=== PATIENT | female | born 1945 | race Caucasian/White ===

== ENCOUNTER 2018-12-01 10:37 | Inpatient (IN) ==
[2018-12-01] MEDS ORDERED: 0.9 % Sodium Chloride 1,000 ML IVC ONE (10:49)
[2018-12-01 11:26] LABS: Basophils % 0.4 %; Eosinophils # 0.2 K/mcL (0.0-0.6); Hematocrit 43.9 % (35.3-44.9); Hemoglobin 14.3 g/dL (11.5-15.4); Immature Granulocytes % 0.3 % (0-4); Lymphocytes # 2.4 K/mcL (0.6-4.6); Lymphocytes % 26.7 %; Mean Corpuscular HGB Conc 32.6 g/dL (31.6-35.5); Mean Corpuscular Hemoglobin 30.1 pg (28.0-33.3); Mean Corpuscular Volume 92.4 fL (83.0-100.0); Mean Platelet Volume 10.6 fL (9.4-12.4); Monocytes # 0.9 K/mcL (0.0-1.3); Monocytes % 9.8 %; Neutrophils # 5.5 K/mcL (1.6-8.9); Platelet Count 228 K/mcL (140-400); Red Blood Count 4.75 M/mcL (3.82-4.97); Red Cell Distribution Width 13.2 % (11.5-14.5); Segmented Neutrophils % 60.8 %
[2018-12-01 11:35] LABS: INR 2.8; Prothrombin Time 31.8 Seconds (9.4-12.1)
[2018-12-01 11:47] LABS: BUN/Creatinine Ratio 23 (6-26); Blood Urea Nitrogen 26 mg/dL (8-23); Calcium 9.5 mg/dL (8.6-10.3); Carbon Dioxide 24 mEq/L (23-29); Chloride 110 mEq/L (98-107); Glucose 107 mg/dL (70-105); Osmolality,Calculated 289 (280-300); Potassium 4.3 mEq/L (3.5-5.1); Sodium 137 mEq/L (136-145); Troponin I < 0.03 ng/mL (< 0.04); eGFR For African Americans 57 (> 60); eGFR For Non-African Americans 47 (> 60)
[2018-12-01 12:00] LABS: Thyroid Stimulating Hormone 2.133 mcIU/mL (0.340-5.600)
[2018-12-01] MEDS ORDERED: Aspirin 81 MG TAB.CHEW PO STA (12:02)
[2018-12-01] MEDS ORDERED: Naloxone 0.4 MG/ML INJ IVP PRN (15:10)
[2018-12-01] MEDS ORDERED: NON-FORMULARY MEDICATION 1 EACH EACH (Zolmitriptan [Zomig] 5 MG) PO PRN (15:17)
[2018-12-01] MEDS ORDERED: *HR* Heparin 5,000 UNIT/ML VIAL IVP PRN ×2 (15:27)
[2018-12-01] MEDS ORDERED: *HR* Heparin 5,000 UNIT/ML VIAL IVP ONE (15:27)
[2018-12-01] MEDS ORDERED: Heparin 25,000 UNIT/250 ML D5W 25,000 UNIT/250 ML IV.SOLN IVC SCH (15:30)
[2018-12-01 16:32] LABS: Hematocrit 43.9 % (35.3-44.9); Hemoglobin 14.4 g/dL (11.5-15.4); Mean Corpuscular HGB Conc 32.8 g/dL (31.6-35.5); Mean Corpuscular Hemoglobin 30.2 pg (28.0-33.3); Mean Platelet Volume 10.6 fL (9.4-12.4); Platelet Count 233 K/mcL (140-400); Red Blood Count 4.77 M/mcL (3.82-4.97); Red Cell Distribution Width 13.1 % (11.5-14.5); White Blood Count 9.5 K/mcL (4.3-11.1)
[2018-12-01] MEDS ORDERED: Warfarin perPT PO PRN (18:00)
[2018-12-01] MEDS: Loratadine 10 MG TABLET PO SCH (22:36)
[2018-12-02 04:34] LABS: Basophils # 0.1 K/mcL (0.0-0.2); Basophils % 0.5 %; Eosinophils # 0.3 K/mcL (0.0-0.6); Eosinophils % 2.9 %; Hematocrit 43.2 % (35.3-44.9); Hemoglobin 14.1 g/dL (11.5-15.4); Immature Granulocytes % 0.2 % (0-4); Lymphocytes # 3.2 K/mcL (0.6-4.6); Lymphocytes % 32.4 %; Mean Corpuscular HGB Conc 32.6 g/dL (31.6-35.5); Mean Corpuscular Hemoglobin 29.9 pg (28.0-33.3); Mean Corpuscular Volume 91.5 fL (83.0-100.0); Mean Platelet Volume 10.5 fL (9.4-12.4); Monocytes # 0.9 K/mcL (0.0-1.3); Monocytes % 9.2 %; Neutrophils # 5.4 K/mcL (1.6-8.9); Platelet Count 213 K/mcL (140-400); Red Blood Count 4.72 M/mcL (3.82-4.97); Red Cell Distribution Width 13.1 % (11.5-14.5); Segmented Neutrophils % 54.8 %; White Blood Count 9.8 K/mcL (4.3-11.1)
[2018-12-02 04:38] LABS: INR 2.8; Prothrombin Time 31.3 Seconds (9.4-12.1)
[2018-12-02 04:51] LABS: Alanine Aminotransferase 44 Units/L (7-52); Albumin 3.9 g/dL (3.5-5.7); Albumin/Globulin Ratio 1.5 (1.1-2.2); Alkaline Phosphatase 63 Units/L (34-104); Aspartate Amino Transferase 25 Units/L (13-39); BUN/Creatinine Ratio 21 (6-26); Bilirubin,Total 0.8 mg/dL (0.3-1.0); Blood Urea Nitrogen 21 mg/dL (8-23); Calcium 9.1 mg/dL (8.6-10.3); Carbon Dioxide 23 mEq/L (23-29); Chloride 109 mEq/L (98-107); Chol/HDL Ratio 3.4 (0-4.9); Cholesterol 131 mg/dL (< 200); Globulin 2.6 g/dL (2.4-3.5); Glucose 100 mg/dL (70-105); HDL Cholesterol 38 mg/dL (40-59); Osmolality,Calculated 291 (280-300); Potassium 4.3 mEq/L (3.5-5.1); Sodium 139 mEq/L (136-145); Total Protein 6.5 g/dL (6.4-8.9); eGFR For African Americans > 60 (> 60); eGFR For Non-African Americans 53 (> 60)
[2018-12-02 05:58] LABS: LDL Cholesterol,Calculated 71 mg/dL (0-99); Triglycerides 108 mg/dL (< 150)
[2018-12-02] MEDS ORDERED: SUMAtriptan succinate 25 MG TABLET PO PRN (08:15)
[2018-12-02] MEDS: Loratadine 10 MG TABLET PO SCH (11:56)
[2018-12-02] MEDS: Acetaminophen 325 MG TABLET PO PRN (11:57)
[2018-12-02] MEDS ORDERED: Furosemide 40 MG/4 ML VIAL IVP ONE (17:17)
[2018-12-03 04:40] LABS: Hemoglobin 15.2 g/dL (11.5-15.4); Mean Corpuscular Hemoglobin 30.8 pg (28.0-33.3); Mean Corpuscular Volume 93.1 fL (83.0-100.0); Mean Platelet Volume 11.1 fL (9.4-12.4); Platelet Count 228 K/mcL (140-400); Red Blood Count 4.94 M/mcL (3.82-4.97); Red Cell Distribution Width 13.2 % (11.5-14.5); White Blood Count 10.3 K/mcL (4.3-11.1)
[2018-12-03 04:41] LABS: Prothrombin Time 22.2 Seconds (9.4-12.1)
[2018-12-03 04:53] LABS: Calcium 9.5 mg/dL (8.6-10.3)
[2018-12-03] MEDS: Loratadine 10 MG TABLET PO SCH (10:16)
[2018-12-03] MEDS: Doxycycline 100 MG CAPSULE PO SCH (10:16)
[2018-12-04 03:06] LABS: INR 1.5; Prothrombin Time 17.4 Seconds (9.4-12.1)
[2018-12-04] MEDS ORDERED: Clindamycin 900 MG/50 ML 900 MG/50 ML IV.SOLN IVPB ONE (07:59)
[2018-12-04] MEDS: Loratadine 10 MG TABLET PO SCH (09:00)
[2018-12-04] MEDS: Doxycycline 100 MG CAPSULE PO SCH (09:00)
[2018-12-04] MEDS ORDERED: Clindamycin 600 MG/50 ML 1,200 MG/100 ML IV.SOLN IVPB ONE (11:42)
[2018-12-04] MEDS ORDERED: 0.9 % Sodium Chloride 1,000 ML ONE ×2 (11:44→11:47)
[2018-12-04] MEDS ORDERED: *HR* FentaNYL (PF) 100 MCG/2 ML VIAL ONE (11:51)
[2018-12-04] MEDS ORDERED: *HR* Midazolam HCl 2 MG/2 ML VIAL ONE (11:51)
[2018-12-04] MEDS: Acetaminophen 325 MG TABLET PO PRN (14:46)
[2018-12-05] MEDS: Acetaminophen 325 MG TABLET PO PRN (03:06)
[2018-12-05 07:01] VITALS: BP 136/78
[2018-12-05] MEDS: Loratadine 10 MG TABLET PO SCH (08:11)
[2018-12-05] MEDS: Doxycycline 100 MG CAPSULE PO SCH (08:11)
== END 2018-12-05 11:35 | disposition home or self-care (01) | DRG 243 ==
LOC: EMEROOARM 10:37 → 3BNU 10:37 → SUATTDRO 13:33 → 3BNU 14:06
PROVIDERS: ADMIT Internal Medicine; ATTEND Internal Medicine

== ENCOUNTER 2019-03-07 08:59 | Inpatient (IN) ==
[2019-03-07 10:03] LABS: Bilirubin,Urine Negative (Negative); Blood,Urine Small (Negative); Clarity,Urine Clear (Clear); Color,Urine Yellow (Yellow); Glucose,Urine (UA) Normal (Normal); Ketones,Urine Negative (Negative); Leukocyte Esterase,Urine Negative (Negative); Nitrite,Urine Negative (Negative); PH,Urine 6.5 pH Units (5.0-8.0); Protein,Urine Negative (Neg-Trace); Specific Gravity,Urine 1.012 (1.010-1.025); Urobilinogen,Urine Normal (Normal)
[2019-03-07 10:07] LABS: Bacteria,Urine None Seen per hpf (None-Few); Hyaline Casts,Urine None Seen per lpf (None-Few); RBC,Urine 0-3 per hpf (0-3); Squamous Epithelial Cell,Urine Few per lpf (None-Few); WBC,Urine 0-3 per hpf (0-3)
[2019-03-07 10:29] LABS: Basophils % 0.5 %; Eosinophils # 0.1 K/mcL (0.0-0.6); Eosinophils % 1.6 %; Hematocrit 46.4 % (35.3-44.9); Hemoglobin 15.3 g/dL (11.5-15.4); Immature Granulocytes % 0.3 % (0-4); Lymphocytes # 1.9 K/mcL (0.6-4.6); Mean Corpuscular Hemoglobin 30.5 pg (28.0-33.3); Mean Corpuscular Volume 92.4 fL (83.0-100.0); Mean Platelet Volume 9.6 fL (9.4-12.4); Monocytes # 0.8 K/mcL (0.0-1.3); Monocytes % 9.2 %; Neutrophils # 5.8 K/mcL (1.6-8.9); Platelet Count 241 K/mcL (140-400); Red Blood Count 5.02 M/mcL (3.82-4.97); Red Cell Distribution Width 12.9 % (11.5-14.5); Segmented Neutrophils % 66.4 %; White Blood Count 8.8 K/mcL (4.3-11.1)
[2019-03-07 10:53] LABS: BUN/Creatinine Ratio 19 (6-26); Blood Urea Nitrogen 16 mg/dL (8-23); Calcium 9.5 mg/dL (8.6-10.3); Carbon Dioxide 27 mEq/L (23-29); Chloride 107 mEq/L (98-107); Glucose 97 mg/dL (70-105); Osmolality,Calculated 289 (280-300); Potassium 3.9 mEq/L (3.5-5.1); Sodium 139 mEq/L (136-145); eGFR For African Americans > 60 (> 60); eGFR For Non-African Americans > 60 (> 60)
[2019-03-07 10:56] LABS: Troponin I 0.18 ng/mL (< 0.04)
[2019-03-07 11:28] LABS: INR 3.7
[2019-03-07] MEDS ORDERED: Ondansetron ODT 4 MG TAB.RAPDIS SL PRN (12:44)
[2019-03-07] MEDS ORDERED: Naloxone 0.4 MG/ML INJ IVP PRN (12:44)
[2019-03-07] MEDS ORDERED: Nitroglycerin 0.4 MG TAB.SUBL SL PRN (13:10)
[2019-03-07] MEDS ORDERED: Ondansetron 4 MG/2 ML VIAL IVP PRN (13:10)
[2019-03-07] MEDS ORDERED: Perflutren Lipid Microsphere 1.3 ML in 0.9 % Sodium Chloride 8.7 ML IVP ONE (14:14)
[2019-03-07] MEDS: Aspirin 81 MG TAB.CHEW PO SCH (15:14)
[2019-03-07] MEDS ORDERED: Warfarin perPT PO PRN (18:00)
[2019-03-07] MEDS: Doxycycline 100 MG CAPSULE PO SCH (22:17)
[2019-03-07] MEDS ORDERED: Acetaminophen 325 MG TABLET PO ONE (23:33)
[2019-03-08 03:26] LABS: Hematocrit 40.3 % (35.3-44.9); INR 3.1; Mean Corpuscular HGB Conc 33.7 g/dL (31.6-35.5); Mean Corpuscular Hemoglobin 30.4 pg (28.0-33.3); Mean Corpuscular Volume 90.2 fL (83.0-100.0); Mean Platelet Volume 9.6 fL (9.4-12.4); Platelet Count 218 K/mcL (140-400); Prothrombin Time 35.1 Seconds (9.4-12.1); Red Blood Count 4.47 M/mcL (3.82-4.97); Red Cell Distribution Width 12.9 % (11.5-14.5); White Blood Count 8.5 K/mcL (4.3-11.1)
[2019-03-08 03:27] LABS: Hemoglobin 13.6 g/dL (11.5-15.4)
[2019-03-08 03:44] LABS: BUN/Creatinine Ratio 26 (6-26); Blood Urea Nitrogen 22 mg/dL (8-23); Calcium 8.6 mg/dL (8.6-10.3); Carbon Dioxide 24 mEq/L (23-29); Chloride 107 mEq/L (98-107); Glucose 102 mg/dL (70-105); Osmolality,Calculated 294 (280-300); Potassium 4.2 mEq/L (3.5-5.1); Sodium 140 mEq/L (136-145); eGFR For African Americans > 60 (> 60); eGFR For Non-African Americans > 60 (> 60)
[2019-03-08] MEDS: Loratadine 10 MG TABLET PO SCH (10:52)
[2019-03-08] MEDS: Aspirin 81 MG TAB.CHEW PO SCH (10:53)
[2019-03-08] MEDS: Acetaminophen 325 MG TABLET PO PRN ×2 (15:22→22:53)
[2019-03-08] MEDS ORDERED: *HR* Warfarin 2 MG TABLET PO ONE (20:30)
[2019-03-08] MEDS: Doxycycline 100 MG CAPSULE PO SCH (20:45)
[2019-03-09 05:36] LABS: Hematocrit 45.6 % (35.3-44.9); Hemoglobin 14.9 g/dL (11.5-15.4); Mean Corpuscular HGB Conc 32.7 g/dL (31.6-35.5); Mean Corpuscular Hemoglobin 30.5 pg (28.0-33.3); Mean Corpuscular Volume 93.4 fL (83.0-100.0); Mean Platelet Volume 9.7 fL (9.4-12.4); Platelet Count 240 K/mcL (140-400); Red Blood Count 4.88 M/mcL (3.82-4.97); Red Cell Distribution Width 12.8 % (11.5-14.5); White Blood Count 7.7 K/mcL (4.3-11.1)
[2019-03-09 05:37] LABS: INR 1.8
[2019-03-09 05:57] LABS: BUN/Creatinine Ratio 29 (6-26); Blood Urea Nitrogen 29 mg/dL (8-23); Calcium 9.4 mg/dL (8.6-10.3); Carbon Dioxide 23 mEq/L (23-29); Chloride 105 mEq/L (98-107); Glucose 112 mg/dL (70-105); Magnesium 1.9 mg/dL (1.6-2.6); Osmolality,Calculated 295 (280-300); Sodium 139 mEq/L (136-145); eGFR For African Americans > 60 (> 60); eGFR For Non-African Americans 53 (> 60)
[2019-03-09 07:56] VITALS: BP 127/77
[2019-03-09] MEDS: Loratadine 10 MG TABLET PO SCH (09:02)
[2019-03-09] MEDS: Aspirin 81 MG TAB.CHEW PO SCH (09:03)
[2019-03-09] MEDS ORDERED: *HR* Enoxaparin 80 MG/0.8 ML SYRINGE SQ SCH (18:00)
[2019-03-09] MEDS ORDERED: *HR* Warfarin 3 MG TABLET PO ONE (18:00)
== END 2019-03-09 16:24 | disposition home or self-care (01) | DRG 281 ==
LOC: SUATTDRO → EMEROOARM 08:59 → 3BNU 08:59 → SUATTDRO 12:37 → 3BNU 13:39
PROVIDERS: ADMIT Family Medicine; ATTEND Internal Medicine